=== PATIENT | female | born 1960 | race Caucasian/White ===

== ENCOUNTER → 2019-02-16 | Day surgery (SDC) | payer BC, OTHER ==
[~2019-02-16] VITALS: Ht 177.8 cm; Wt 96.6 kg
[~2019-02-16] MED LIST: CYCLOBENZAPRINE10 MG PO; LEVO-T50 MCG PO; NORCO 5-325 TA1 EAC1 PO
--- NOTE | ~2019-02-16 | O ---
[facility] [place] [address] OPERATIVE REPORT Name: CRISTY WEISS Room #: 130-P1 [facility]..#: [id number] Admission: 02/16/19 Attend Phys: Mat Buenrostro MD Discharge: Date of : 64 Report #: [id number] THIS REPORT FOR: //name// CC: Physician staff YESICA Buenrostro DATE OF SERVICE: 02/16/2019 PREOPERATIVE DIAGNOSIS: Right knee medial and lateral menisci tears. POSTOPERATIVE DIAGNOSES: 1. Right knee root tear, posterior horn of medial meniscus. 2. Anterior horn tear of the lateral meniscus. 3. Grade 3 chondromalacia of the medial femoral condyle, lateral tibial plateau, and trochlear groove. PROCEDURES: 1. Right knee arthroscopy with partial medial and lateral meniscectomy. 2. Chondroplasty of medial femoral condyle and trochlear groove. SURGEON: Mat Buenrostro MD. HAZARDOUS MATERIALS DRIVER: Minda Sam PA-C. ANESTHESIA: LMA. TOURNIQUET TIME: 15 minutes. COMPLICATIONS: None. SPECIMENS: None. CONDITION UPON LEAVING THE OPERATING ROOM: Stable. INDICATIONS FOR PROCEDURE: The patient is a 58-year-old female with medial and lateral right knee pain. She had an MRI scan and shown to have tears of her medial and lateral menisci. After discussion with her, she elected for a right knee arthroscopy with medial and lateral meniscectomy and debridement as needed. DESCRIPTION OF PROCEDURE: The risks, benefits, alternatives, and complications were discussed in detail with the patient including, but not limited to, risk of anesthesia, risk of damage to nerves, arteries, blood vessels, the risk for infection, bleeding, and the risk for a continued knee pain and need for reoperation. Informed consent was obtained from the patient. The right knee was appropriately marked in the preoperative holding area. IV clindamycin was [address] [address] OPERATIVE REPORT Name: CRISTY WEISS Room #: 130-P1 [facility]..#: [id number] Admission: 02/16/19 Attend Phys: Mat Buenrostro MD Discharge: Date of : 64 Report #: [id number] given for preoperative antibiotics. She was brought to the operating room and placed in the supine position on operating room table. LMA anesthesia was induced without complication and the tourniquet was placed on the right thigh and right lower extremity was prepped and draped in normal sterile fashion. Timeout was performed, properly identifying the patient, procedure, as well as the instrumentation. All in the operating room were in agreement. Right lower extremity was exsanguinated and tourniquet was inflated. Tourniquet time was approximately 15 minutes. Standard anterolateral portal was established with a 11 blade through the skin. Arthroscope was introduced into the patellofemoral compartment and diagnostic arthroscopy was undertaken. Patellofemoral compartment was visualized and found to have grade 2 chondromalacia of the patella as well as grade 3 chondromalacia of the trochlear groove. Medial gutter was visualized and found to be without pathology. Medial compartment was visualized and then a medial portal was established under the arthroscopic visualization. Probe was introduced into the medial compartment and there was noted to be a root tear of the posterior horn of medial meniscus. This was smoothed back with an oscillating shaver. In addition, there was grade 3 chondromalacia of the medial femoral condyle with several unstable cartilaginous flaps and this was smoothed back with an oscillating shaver. Notch was visualized and found to have an intact anterior cruciate ligament and lateral compartment was visualized and found to have significant tearing and degeneration of the anterior horn of the lateral meniscus. This was smoothed back with an oscillating shaver. We essentially took out the entire anterior horn of the lateral meniscus. There was grade 3 chondromalacia of the lateral tibial plateau. After this, scope was placed back in the patellofemoral compartment and chondroplasty of the trochlear groove was performed with an oscillating shaver. All fluid was allowed to drain from the knee and knee was injected with 10 mL of 0.5% Marcaine. Incision was closed with 3-0 nylon. Soft dressing of Adaptic, 4 x 4, Webril, and Ozzy wrap were applied. The patient tolerated this procedure well and went to the recovery room under care of anesthesia postoperatively. By: [id number] Mat Buenrostro MD /nt
[2019-02-16 14:07] VITALS: BP 118/61
[2019-02-16 15:27] VITALS: BP 118/61
== END | disposition home or self-care (01) ==
LOC: OR 06:37 → PRE 11:51 → OR 12:00
DX: M23.221 Derangement of posterior horn of medial meniscus due to old tear or injury, right knee (principal); M23.241 Derangement of anterior horn of lateral meniscus due to old tear or injury, right knee; M94.261 Chondromalacia, right knee; E03.9 Hypothyroidism, unspecified; Z98.890 Other specified postprocedural states; Z79.899 Other long term (current) drug therapy; Z88.0 Allergy status to penicillin; Z90.49 Acquired absence of other specified parts of digestive tract; Z88.2 Allergy status to sulfonamides; Z90.711 Acquired absence of uterus with remaining cervical stump; Z88.8 Allergy status to other drugs, medicaments and biological substances; Z79.891 Long term (current) use of opiate analgesic
CPT/HCPCS: 15002; 50010; 50101; 50405; 51038; 54170; 56526; 57103; 57180; 62110; 62900; 70005